=== PATIENT | male | born 1955 | race Caucasian/White ===

== ENCOUNTER → 2016-07-27 | Outpatient (REF) ==
[~2016-07-27] MED LIST: BYETTA 10M600 MCG/SY SC; COREG 6.256.25 MG/TA PO; GLUCOPHAGE1000 MG PO; GLUCOPHAGE500 MG/TAB PO; LANTUS100 U/ML SC; LIPITOR20 MG PO; MICROZIDE12.5 MG PO; NOVOLOG 100U100 U/M1 SC; ZESTRIL 5MG5 MG PO; ZESTRIL2.5 MG PO
== END ==
LOC: WSOH 08:14
DX: Z00.00 Encounter for general adult medical examination without abnormal findings (principal)

== ENCOUNTER → 2016-07-27 | Outpatient (REF) | LOC: WSOH 09:15 | DX: Z02.89 Encounter for other administrative examinations (principal) ==